=== PATIENT | female | born 1975 | race Caucasian/White ===

== ENCOUNTER 2018-09-17 20:02 | Emergency (ER) ==
[2018-09-17 20:05] VITALS: BMI 37.5
[2018-09-17] MEDS ORDERED: SODIUM CHLORIDE 1,000 ML IV STA (20:13)
[2018-09-17] MEDS ORDERED: ZOFRAN 4 MG/2 ML IVP STA (20:15)
[2018-09-17] MEDS ORDERED: DILAUDID 1 MG/ML SYRINGE IVP STA ×2 (20:15→21:32)
--- NOTE | 2018-09-17 21:36 | CT ---
Exam: CT abdomen pelvis without intravenous contrast followed by CT abdomen pelvis with intravenous contrast. Comparison: 03/30/2014. Reason for exam: Abdominal pain. FINDINGS: No pleural effusion, or focal consolidation in the partially imaged lung bases. The liver is lower in attenuation in the spleen. The spleen, adrenal glands, gallbladder, and pancre as appear grossly unremarkable. No hydronephrosis, hydroureter or nephrolithiasis in either kidney. No focal small bowel dilatation or transition point. The appendix appears unremarkable. No intra-abdominal free air or pelvic free fluid. Hypodensity in the right cindy pelvis adjacent to the uterus presumably adnexal/ovarian cyst. Hyperde nsity within the uterine myometrium is presumably a fibroid. Degenerative disease is seen in the lumb osacral spine without suspicious appearing osteoblastic or osteolytic lesion. There is a small only fat containing periumbilical hernia. Mild diverticular disease without evidence of wall thickening or surrounding inflammatory change. Impression: 1. Hypodensities in the right cindy pelvis likely adnexal/ovarian cysts. Wall enhancing hypodensity ma y represent a corpus luteum. If clinical concern exists for pelvic pathology, transabdominal and tra nsvaginal ultrasound may be performed for further characterization. 2. Diverticulosis without diverticulitis. 3. Hyperdensity within the uterine myometrium presumably a fibroid. 4. Hepatic steatosis.
--- NOTE | 2018-09-17 22:22 | ED.PDOC ---
General ED Provider: Dr. JEANNE BURGOS-ER Chief Complaint: Abdominal Pain Stated Complaint: im hurting Time Seen by Physician: 22:19 Mode of Arrival: Walk-In Information Source: Patient, Family Exam Limitations: No limitations Primary Care Provider: MIRIAM DIMAS Nursing and Triage Documentation Reviewed and Agree: Yes Does patient meet sepsis criteria?: No System Inflammatory Response Syndrome: Not Applicable Sepsis Protocol: For patient's 13 years and over: Temp is 96.8 and below OR 101 and greater Pulse >90 BPM Resp >20/minute Acutely Altered Mental Status Are patient's symptoms suggestive of a new infection, such as: -Pneumonia -Skin, Soft Tissue -Endocarditis -UTI -Bone, Joint Infection -Implantable Device -Acute Abdominal Infection -Wound Infection -Meningitis -Blood Stream Catheter Infection -Unknown GI Complaint Exam - Abdominal Pain Complaint/Exam Onset: Gradual Duration: several hours Symptoms Are: Still present Timing: Constant Initial Severity: Mild Current Severity: Moderate Location of Pain: Diffuse Character: Reports: Dull, Cramping Alleviating: Reports: Spontaneous resolution Associated Signs and Symptoms: Denies: Diaphoresis, Fever, Cough, Chest pain, Dizziness, Back pain, Constipation, Blood in stool, Dysuria, Urinary frequency, Decreased urine output, Decreased appetite, Vaginal bleeding, Vaginal discharge , Nausea, Vomiting, Diarrhea, Sore throat, Decreased activity Differential Diagnoses: Appendicitis, Bowel Obstruction, Constipation, Pancreatitis Quality Indicator For Non-Traumatic Chest Pain/Syncope: EKG Performed Review of Systems - Review Of Systems Constitutional: Reports: No symptoms Eyes: Reports: No symptoms Ears, Nose, Mouth, Throat: Reports: No symptoms Respiratory: Reports: No symptoms Cardiac: Reports: No symptoms GI: Reports: Abdominal pain, Nausea : Reports: No symptoms Musculoskeletal: Reports: No symptoms Skin: Reports: No symptoms Neurological: Reports: No symptoms Endocrine: Reports: No symptoms Hematologic/Lymphatic: Reports: No symptoms All Other Systems: Reviewed and Negative Past Medical History - Past Medical History Previously Healthy: Yes Endocrine: Reports: None Cardiovascular: Reports: None Respiratory: Reports: None Hematological: Reports: None Gastrointestinal: Reports: None Genitourinary: Reports: None Neuro/Psych: Reports: None Musculoskeletal: Reports: None Cancer: Reports: None Last Menstrual Period: 2 WEEKS - Surgical History General Surgical History: Reports: None - Family History Family History: Reports: None - Social History Smoking Status: Current every day smoker, Heavy tobacco smoker Hx Substance Use: No Alcohol Screening: None - Immunizations Tetanus Shot up to Date: Yes Physical Exam - Physical Exam Appearance: Well-appearing, No pain distress, Well-nourished Pain Distress: Moderate Eyes: SAMANTHA, EOMI, Conjunctiva clear ENT: Ears normal, Nose normal, Oropharynx normal Neck: Supple Respiratory: Airway patent Cardiovascular: RRR, Pulses normal, No rub, No murmur GI/: Soft, Nontender, No masses, Bowel sounds normal, No Organomegaly Musculoskeletal: Normal strength, ROM intact, No edema, No calf tenderness Skin: Warm, Dry, Normal color Neurological: Sensation intact, Motor intact, Reflexes intact, Cranial nerves intact, Alert, Oriented Psychiatric: Affect appropriate, Mood appropriate Interpretation - Radiology Interpretation Radiology Interpretation By: Radiologist Radiology Results: Negative Exam Interpreted: CT Scan - EKG Interpretation Time of EKG #1: 22:21 Rate: Normal Rhythm: Sinus Ectopy: None Lyons: NL ST Segment: Normal Interpretation: nsr Critical Care Note - Critical Care Note Total Time (mins): 0 Course - Course Hematology/Chemistry: 09/17/18 20:30 09/17/18 20:30 Orders, Labs, Meds: Lab Review 09/17/18 09/17/18 09/17/18 20:30 20:30 20:30 WBC 14.35 H RBC 4.63 Hgb 14.1 Hct 40.4 MCV 87.3 MCH 30.5 MCHC 34.9 RDW Coeff of Gerry 12.2 Plt Count 311 Immature Gran % (Auto) 0.4 Neut % (Auto) 54.1 Lymph % (Auto) 34.8 [place] % (Auto) 6.2 Eos % (Auto) 4.0 Baso % (Auto) 0.5 Immature Gran # (Auto) 0.1 Neut # (Auto) 7.8 H Lymph # (Auto) 5.0 H [place] # (Auto) 0.9 Eos # (Auto) 0.6 Baso # (Auto) 0.1 ESR 7 Sodium 136.3 L Potassium 3.90 Chloride 103.2 Carbon Dioxide 28.7 Anion Gap 8.30 BUN 15.4 Creatinine 0.89 Estimated GFR (MDRD) 70.00 BUN/Creatinine Ratio 17.30 Glucose 107.7 H Calcium 9.01 Total Bilirubin 0.27 AST 37.1 H ALT 29.3 Alkaline Phosphatase 53.9 Total Protein 7.80 Albumin 4.42 Globulin 3.38 Albumin/Globulin Ratio 1.30 Amylase 58.0 Lipase 137.8 Serum , Qual Negative Urine Color Urine Clarity Urine pH Ur Specific [place] Urine Protein Urine Glucose (UA) Urine Ketones Urine Blood Urine Nitrite Urine Bilirubin Urine Urobilinogen Ur Leukocyte Esterase Urine Microscopic RBC Urine Microscopic WBC Ur Squamous Epith Cells Urine Bacteria 09/17/18 20:30 WBC RBC Hgb Hct MCV MCH MCHC RDW Coeff of Gerry Plt Count Immature Gran % (Auto) Neut % (Auto) Lymph % (Auto) [place] % (Auto) Eos % (Auto) Baso % (Auto) Immature Gran # (Auto) Neut # (Auto) Lymph # (Auto) [place] # (Auto) Eos # (Auto) Baso # (Auto) ESR Sodium Potassium Chloride Carbon Dioxide Anion Gap BUN Creatinine Estimated GFR (MDRD) BUN/Creatinine Ratio Glucose Calcium Total Bilirubin AST ALT Alkaline Phosphatase Total Protein Albumin Globulin Albumin/Globulin Ratio Amylase Lipase Serum , Qual Urine Color Yellow Urine Clarity Slightly Urine pH 7.0 Ur Specific [place] 1.020 Urine Protein Negative Urine Glucose (UA) Negative Urine Ketones Negative Urine Blood Negative Urine Nitrite Negative Urine Bilirubin Negative Urine Urobilinogen 1.0 Ur Leukocyte Esterase Trace Urine Microscopic RBC 0-2 Urine Microscopic WBC 5-10 Ur Squamous Epith Cells 10-20 Urine Bacteria 3+ Orders Category Date Time Status EKG-(ED ONLY) Stat CARDIO 09/17/18 20:13 Completed NPO REMINDER: IMAGING ONCE CARE 09/17/18 20:14 Completed ED IV/MEDIPORT/POWERPORT .ONCE EMERGENCY 09/17/18 20:13 Active AMYLASE Stat LAB 09/17/18 20:30 Completed CBC W/ AUTO DIFF Stat LAB 09/17/18 20:30 Completed COMPREHENSIVE METABOLIC PANEL Stat LAB 09/17/18 20:30 Completed ESR Stat LAB 09/17/18 20:30 Completed LIPASE Stat LAB 09/17/18 20:30 Completed SERUM Stat LAB 09/17/18 20:30 Completed URINALYSIS C & S IF INDICATED Stat LAB 09/17/18 20:30 Completed URINE CULTURE Stat LAB 09/17/18 20:30 Received 0.9 % Sodium Chloride [Saline Flush] MEDS 09/17/18 20:13 Ordered 1 syr IVF PRN PRN Hydromorphone HCl [Dilaudid 1 mg/ml Syringe] MEDS 09/17/18 20:15 Discontinued 1 mg IVP ONCE STA Hydromorphone HCl [Dilaudid 1 mg/ml Syringe] MEDS 09/17/18 21:32 Discontinued 1 mg IVP ONCE STA Ondansetron HCl/Pf [Zofran 4 mg/2 ml] MEDS 09/17/18 20:15 Discontinued 4 mg IVP ONCE STA Sodium Chloride 0.9% [Sodium Chloride] 1,000 ml MEDS 09/17/18 20:13 Active IV 100 mls/hr CT ABDOMEN/PELVIS W/WO CONTRAS Stat RADS 09/17/18 20:14 Completed Medications Generic Name Dose Route Start Last Admin Trade Name Freq PRN Reason Stop Dose Admin Sodium Chloride 1,000 mls @ 100 mls/hr 09/17/18 20:13 09/17/18 20:52 Sodium Chloride IV 09/18/18 06:12 100 mls/hr .Q10H STA Administration Sodium Chloride 1 syr 09/17/18 20:13 Saline Flush IVF PRN PRN To flush IV Discontinued Medications Generic Name Dose Route Start Last Admin Trade Name Freq PRN Reason Stop Dose Admin Hydromorphone HCl 1 mg 09/17/18 20:15 09/17/18 20:52 Dilaudid 1 Mg/Ml Syringe IVP 09/17/18 20:16 1 mg ONCE STA Administration Hydromorphone HCl 1 mg 09/17/18 21:32 09/17/18 21:59 Dilaudid 1 Mg/Ml Syringe IVP 09/17/18 21:33 1 mg ONCE STA Administration Ondansetron HCl 4 mg 09/17/18 20:15 09/17/18 20:52 Zofran 4 Mg/2 Ml IVP 09/17/18 20:16 4 mg ONCE STA Administration Vital Signs: Temp Pulse Resp BP Pulse Ox 09/17/18 20:02 98 F 109 H 18 141/97 H 98 Departure - Departure Time of Disposition: 22:22 Disposition: TSF SHORT-TRM HOSP Discharge Problem: Abdominal pain Instructions: Acute Abdominal Pain (ED) Condition: Good Pt referred to PMD for follow-up: Yes IPMP verified?: No Allergies/Adverse Reactions: Allergies Penicillins Adverse Reaction (Severe, Unverified 09/17/18 21:28) Anaphylaxis miconazole Adverse Reaction (Mild, Unverified 09/17/18 21:28) Itching prednisone Adverse Reaction (Mild, Unverified 09/17/18 21:28) Unknown uncontrollable shaking after day 3 miconazole nitrate [From Monistat 7] Adverse Reaction (Unverified 09/17/18 21:28 ) Home Medications: Ambulatory Orders Multivitamin [Daily Vitamin] 1 each PO DAILY 03/14/15 Hyoscyamine Sulfate [Hyoscyamine Sulfate Er] 0.375 mg PO DAILY 10/21/16 Fenofibrate Nanocrystallized [Fenofibrate] 145 mg PO DAILY 09/17/18 Oracle-3/Dha/Epa/Fish Oil [Fish Oil 1,000 mg Softgel] 1 each PO DAILY 09/17/18 Pravastatin Sodium [Pravachol] 20 mg PO 2 TIMES PER WEEK 09/17/18 Transfer Form Completed: Yes Disposition Discussed With: Patient, Family
[2018-09-17 23:03] VITALS: BP 122/78; TEMP 99.8
== END 2018-09-17 23:03 | disposition short-term general hospital (02) ==
LOC: ED 20:02
DX: R10.9 Unspecified abdominal pain (principal); R11.0 Nausea; F17.210 Nicotine dependence, cigarettes, uncomplicated
CPT/HCPCS: 36415; 80053; 81001; 82150; 83690; 84703; 85025; 85651; 87086; 93005; 93010; 96361; 96374; 96375; 99285